=== PATIENT | male | born 1960 | race African-American/Black ===

== ENCOUNTER → 2020-05-08 13:56 | Outpatient (BNVA) | payer BC, SELFPAY | PROVIDERS: Visit Provider Urology | DX: Z76.89 Persons encountering health services in other specified circumstances (principal) ==

== ENCOUNTER 2021-10-22 15:09 | Outpatient (AMB) | payer BC, SELFPAY ==
--- NOTE | 2021-10-22 15:16 | A.OFFVIS_ITS ---
Intake Intake Visit Reasons: Y PVR Intake Note: Patient is present for pvr follow up Boil Off Worker Required: No Accompanied by: Self / Same As Patient Allergies No Known Allergies Allergy (Verified 10/21/22 15:36) HPI HPI Comments History of Present Illness Details Bishnu is a very pleasant [place] male. He is seen for the following urologic issues - lower urinary tract symptoms Lower Urinary Tract Symptoms: Family history of large prostate and prostate procedures He has a large prostate on exam previously At this point tells me his urination is stable. Waking once per night. Feels he has a good stream and emptying his bladder completely Here for follow-up assessment At this point is stable with symptoms but would like to be followed. Has large prostate on exam Discussed use of finasteride for enlarged prostate. Discussed natural history of [place] men who have large prostates. 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 Current visit is for initial symptom evaluation of, lower urinary tract symptoms, predominate obstructive symptoms. Current treatment includes observation. Prostate Symptom Score Mild (0-8), Bother 2. Symptoms include incomplete emptying, weak stream, and are stable. [facility] Medical History Benign prostatic hyperplasia with lower urinary tract symptoms Hyperlipidemia Mild acid reflux Poor urinary stream Surgical History History of surgery Review of Systems Const Denies chills and Denies fever(s) Card Reports no additional complaints and Denies syncope Resp Denies cough GI Denies abdominal pain and Denies heartburn Reports as per HPI and Denies change in libido Neuro Denies syncope Psych Denies change in libido Endo Denies change in libido Physical Exam Const General: cooperative, healthy appearing, comfortable and no acute distress Orientation/consciousness: patient oriented x3 HEENT Face and sinus: Yes normal facial exam Mouth: moist mucous membranes Neck Neck: Yes normal visual inspection, Yes full ROM and Yes trachea midline Chest Chest palpation & inspection: normal inspection of the chest Resp Effort & Inspection: normal respiratory effort, able to speak in complete sentences and no respiratory distress GI Inspection: Yes normal to inspection Back/Spine/Pelvis Cervical Spine: normal cervical lordosis Thoracic/Lumbar Spine: thoracic and lumbar spine normal to inspection Skin General skin exam: no rashes or lesions noted Neuro General: patient oriented x3, gait normal, tone normal and moves all extremities Extrem General: Yes normal to inspection and Yes capillary refill normal Office Procedures Post Void Residual Post Residual Void Post Void Residual (PVR): 0 [id number] Void Residual by ultrasound Results AMB Urinalysis, Automated UA Leukoctes 0 Antonio/uL Last Edit by Jocelyn Tran [facility] on 10/22/21 15:36 UA Nitrite Negative Last Edit by Jocelyn Tran [facility] on 10/22/21 15:36 UA Urobilinogen 0.2 mg/dL Last Edit by Jocelyn Tran A on 10/22/21 15:3 6 UA Protein 100 mg/dL Last Edit by Jocelyn Tran [facility] on 10/22/21 15:36 UA pH 5.5 Last Edit by Jocelyn Tran [facility] on 10/22/21 15:36 UA Blood 0 Noah/uL Last Edit by Jocelyn Tran [facility] on 10/22/21 15:36 UA Specific [place] 1.030 Last Edit by Jocelyn Tran [facility] on 10/22/21 15: 36 UA Ketone Negative Last Edit by Jocelyn Tran [facility] on 10/22/21 15:36 UA Bilirubin 1 mg/dL Last Edit by Jocelyn Tran [facility] on 10/22/21 15:36 UA Glucose 250 mg/dL Last Edit by Jocelyn Tran [facility] on 10/22/21 15:36 Results Reviewed Results Reviewed: Laboratory Last Values Urine pH (Auto) 5.5 10/22/21 15:18 Specific [place] (Auto) 1.030 10/22/21 15:18 Urine Protein (Auto) 100 mg/dL 10/22/21 15:18 Glucose (UA)(Auto) 250 mg/dL 10/22/21 15:18 Urine Ketones (Auto) Negative 10/22/21 15:18 Urine Blood (Auto) 0 Noah/uL 10/22/21 15:18 Urine Nitrite (Auto) Negative 10/22/21 15:18 Urine Bilirubin (Auto) 1 mg/dL 10/22/21 15:18 Urine Urobilinogen (Auto) 0.2 mg/dL 10/22/21 15:18 Leukocyte Esterase (Auto) 0 Antonio/uL 10/22/21 15:18 Assessment & Plan Assessment & Plan (1) BPH w urinary obs/LUTS: Code(s): N40.1 - Benign prostatic hyperplasia with lower urinary tract symptoms; N13.8 - Other obstructive and reflux uropathy Plan Continue yearly follow-up Orders: Orders AMB Urinalysis Automated 10/22/21 Z13.9 - Encounter for screening, unspecified AMB Post Void Residual by ultrasound 10/22/21 N40.1 - Benign prostatic hyperplasia with lower urinary tract symptoms, N13.8 - Other obstructive and reflux uropathy Patient Instructions: Imaging studies, laboratory and physical exam results were discussed and reviewed in detail. No major barriers to patient understanding were identified. An opportunity to ask questions regarding the treatment plan was provided. All questions were answered. The patient expressed understanding and agreement with the above treatment plan. The patient is aware they should contact our office by phone for worsening of their current condition or the appearance of new urologic symptoms. Compliance is encouraged with any medications and followup testing that is ordered. It is a privilege to participate in the urologic care of your patient. If you have any questions or concerns regarding treatment for the above conditions, or other urologic issues, please do not hesitate to contact me. The office telephone contact is [phone]. This note is constructed using voice recognition software. While every effort has been made to ensure accuracy concrete batching plant operator errors may have been included. Yours sincerely, Dr Jamari Diaz MD, [facility] - Urology Providers of Expert, Compassionate Care for the Genitourinary System Coding Level of Care Code Est Pt Level 3 (62263) Diagnoses BPH w urinary obs/LUTS N40.1; N13.8 CPT Codes Post Residual Void - PVR CPT Code: 00855-[id number] Void Residual by ultrasound ([id number])
== END 2021-10-22 16:34 | disposition home or self-care (01) ==
LOC: HO.HUSH 15:09
PROVIDERS: Visit Provider Urology
DX: N40.1 Benign prostatic hyperplasia with lower urinary tract symptoms (principal); N13.8 Other obstructive and reflux uropathy
CPT/HCPCS: 99213

== ENCOUNTER → 2021-10-22 15:09 | Outpatient (BNVA) | payer BC, SELFPAY | PROVIDERS: Visit Provider Urology | DX: N40.1 Benign prostatic hyperplasia with lower urinary tract symptoms (principal); N13.8 Other obstructive and reflux uropathy | CPT/HCPCS: 51798 ==

== ENCOUNTER → 2022-10-21 15:24 | Outpatient (BNVA) | payer BC, SELFPAY | PROVIDERS: PCP Internal Medicine; Visit Provider Urology | DX: N40.1 Benign prostatic hyperplasia with lower urinary tract symptoms (principal); N13.8 Other obstructive and reflux uropathy | CPT/HCPCS: 51798 ==

== ENCOUNTER 2023-11-15 15:53 | Outpatient (AMB) | payer BC, SELFPAY ==
--- NOTE | 2023-11-15 16:06 | A.OFFVIS_ITS ---
Intake Visit Reasons: 1 yr follow up Intake Note: Patient is present for 1 YEAR FOLLOW PVR Urology Med: Antibiotic Allergy: none Blood Thinner: none PVR: 19 ml Forest Supervisor Required: No Accompanied by: Self / Same As Patient Allergies No Known Allergies Allergy (Verified 11/15/23 16:07) HPI Comments Details: Bishnu is a very pleasant [place] male. 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 Current treatment includes observation. Prostate Symptom Score Mild (0-8), Bother 2. Symptoms include incomplete emptying, weak stream, and are stable. [facility] Medical History Benign prostatic hyperplasia with lower urinary tract symptoms Hyperlipidemia Mild acid reflux Poor urinary stream Surgical History History of surgery Review of Systems Const Denies chills and Denies fever(s) Card Reports no additional complaints and Denies syncope Resp Denies cough GI Denies abdominal pain and Denies heartburn Reports as per HPI and Denies change in libido Neuro Denies syncope Psych Denies change in libido Endo Denies change in libido Physical Exam Const General: cooperative, healthy appearing, comfortable and no acute distress Orientation/consciousness: patient oriented x3 HEENT Face and sinus: Yes normal facial exam Mouth: moist mucous membranes Neck Neck: Yes normal visual inspection, Yes full ROM and Yes trachea midline Chest Chest palpation & inspection: normal inspection of the chest Resp Effort & Inspection: normal respiratory effort, able to speak in complete sentences and no respiratory distress GI Inspection: Yes normal to inspection Back/Spine/Pelvis Cervical Spine: normal cervical lordosis Thoracic/Lumbar Spine: thoracic and lumbar spine normal to inspection Skin General skin exam: no rashes or lesions noted Neuro General: patient oriented x3, gait normal, tone normal and moves all extremities Extrem General: Yes normal to inspection and Yes capillary refill normal Results AMB Urinalysis, Automated UA Leukoctes 0 Antonio/uL Last Edit by FERNANDO Gray on 11/15/23 16:09 UA Nitrite Negative Last Edit by FERNANDO Gray on 11/15/23 16:09 UA Urobilinogen 0.2 mg/dL Last Edit by FERNANDO Gray on 11/15/23 16:0 9 UA Protein 30 mg/dL Last Edit by FERNANDO Gray on 11/15/23 16:09 1+ Komal Lala 11/15/23 16:09 UA pH 7.0 Last Edit by FERNANDO Gray on 11/15/23 16:09 UA Blood 0 Noah/uL Last Edit by FERNANDO Gray on 11/15/23 16:09 UA Specific [place] 1.010 Last Edit by FERNANDO Gray on 11/15/23 16: 09 UA Ketone Negative Last Edit by FERNANDO Gray on 11/15/23 16:09 UA Bilirubin 1 mg/dL Last Edit by FERNANDO Gray on 11/15/23 16:09 UA Glucose 0 mg/dL Last Edit by FERNANDO Gray on 11/15/23 16:09 Results Reviewed Results Reviewed: Laboratory Last Values Urine pH (Auto) 7.0 11/15/23 16:07 Specific [place] (Auto) 1.010 11/15/23 16:07 Urine Protein (Auto) 30 mg/dL 11/15/23 16:07 Glucose (UA)(Auto) 0 mg/dL 11/15/23 16:07 Urine Ketones (Auto) Negative 11/15/23 16:07 Urine Blood (Auto) 0 Noah/uL 11/15/23 16:07 Urine Nitrite (Auto) Negative 11/15/23 16:07 Urine Bilirubin (Auto) 1 mg/dL 11/15/23 16:07 Urine Urobilinogen (Auto) 0.2 mg/dL 11/15/23 16:07 Leukocyte Esterase (Auto) 0 Antonio/uL 11/15/23 16:07 Assessment & Plan Assessment & Plan (1) BPH w urinary obs/LUTS: Code(s): N40.1 - Benign prostatic hyperplasia with lower urinary tract symptoms; N13.8 - Other obstructive and reflux uropathy Category: Medical Plan Twelve month follow-up Orders: Orders AMB Urinalysis Automated 11/15/23 Z13.9 - Encounter for screening, unspecified Prostate Specific Antigen 364 Days N13.8 - Other obstructive and reflux uropathy, N40.1 - Benign prostatic hyperplasia with lower urinary tract symptoms Patient Instructions: Imaging studies, laboratory and physical exam results were discussed and reviewed in detail. No major barriers to patient understanding were identified. An opportunity to ask questions regarding the treatment plan was provided. All questions were answered. The patient expressed understanding and agreement with the above treatment plan. The patient is aware they should contact our office by phone for worsening of their current condition or the appearance of new urologic symptoms. Compliance is encouraged with any medications and followup testing that is ordered. It is a privilege to participate in the urologic care of your patient. If you have any questions or concerns regarding treatment for the above conditions, or other urologic issues, please do not hesitate to contact me. The office telephone contact is [phone]. This note is constructed using voice recognition software. While every effort has been made to ensure accuracy loss claim clerk errors may have been included. Yours sincerely, Dr Jamari Diaz MD, [facility] - Urology Providers of Expert, Compassionate Care for the Genitourinary System Coding Level of Care Code Est Pt Level 4 (47992) Diagnoses BPH w urinary obs/LUTS N40.1; N13.8
== END 2023-11-16 08:30 | disposition home or self-care (01) ==
PROVIDERS: PCP Internal Medicine; Visit Provider Urology
DX: N40.1 Benign prostatic hyperplasia with lower urinary tract symptoms (principal); N13.8 Other obstructive and reflux uropathy
CPT/HCPCS: 99213

== ENCOUNTER → 2023-11-15 15:59 | Outpatient (BNVA) | payer BC, SELFPAY | PROVIDERS: PCP Internal Medicine; Visit Provider Urology | DX: N40.1 Benign prostatic hyperplasia with lower urinary tract symptoms (principal); N13.8 Other obstructive and reflux uropathy | CPT/HCPCS: 81003 ==

== ENCOUNTER 2024-11-13 15:17 | Outpatient (AMB) | payer BC, SELFPAY ==
--- OUTSIDE RECORDS SUMMARY | 2024-11-13 15:20 | XMS_ITS | Clinical Summary ---
Author Organization [facility] Address [address] [place] [phone] Phone Care Team Providers Care Template Clerk Name Role Phone Virgil Roca MD Primary Care Provider [phone] Social History Tobacco Use Types Packs/Day Years Used Date Smoking Tobacco: Never Assessed Education Answer Date Recorded Are you interested in more education? Not on petey e 11/07/2022 Are you concerned about learning? Not on file 11/07/2022 No 11/07/2022 No 11/07/2022 Digital Access Answer Date Recorded No 11/22/2022 No 11/22/2022 Reliable internet access at home? Not on file 11/22/2022 Device with a working camera? Not on file Sex and Gender Information Value Date Recorded Sex Assigned at Male 11/07/2022 9:58 AM EDT Legal Sex Male 9:53 AM EDT Gender Identity Male 11/07/2022 9:58 AM EDT Sexual Orientation Straight 11/07/2022 9: 58 AM EDT Plan of Treatment Health Maintenance Due Date Last Done Comments Adult Td,Tdap Booster 1958 LIPID PANEL 1958 DEPRESSION SCREENING 1970 SMOKING Hx and SMOKELESS TOB ACCO SCREENING 09/25/1971 HEPATITIS C SCREENING 1976 COLOGUARD 09/25/2003 COLONOSCOPY 09/25/2003 COLORECTAL CANCER SCREENING 09/25/2003 FIT TEST 09/25/2003 FOBT 09/25/2003 SIGMOIDOSCOPY 09/25/2003 VIRTUAL COLONOSCOPY 09/25/2003 PNEUMOCOCCAL VACCINES (50+ y ears) (1 of 1 - PCV) 2008 ZOSTER VACCINES (1 of 2) 2008 COVID-19 VACCINE ( - 2023-2 5 season) 2024 RSV VACCINE (1 - 1-dose 75+ series) 2033 HEPATITIS A VACCINES Aged Out No long er eligible based on patient's age to complete this topic HIB VACCINES Aged Out No longer eligi ble based on patient's age to complete this topic MENINGOCOCCAL VACCINES (ACWY) Aged Out No longer eligible based on patient's age to complete this topic MENINGOCOCCAL VACCINES (B) Aged Out N o longer eligible based on patient's age to complete this topic Medical Devices Not on file Insurance [facility] PPO EPO [facility] PPO EPO [employer] [employer] [employer] [employer] PPO EPO Care Teams Template Clerk Relationship Specialty Start Date End Date Virgil Roca MD [address] [place] [id number] PCP - General Internal Medicine 11/07/22 Additional Source Comments The information contained in this document represents components of the legal health record. It is not the complete legal health record.[facility]
--- OUTSIDE RECORDS SUMMARY | 2024-11-13 15:20 | XMS_ITS | Clinical Summary ---
Author Organization [facility] [employer] [email or web address] Address [address] [place] [address] Care Team Providers Care Rn Chronic Name Role Phone Unavailable Primary Care Provider Unavailabl e Social History Tobacco Use Types Packs/Day Years Used Date Smoking Tobacco: Never Assessed Sex and Gender Information Value Date Recorded Sex Assigned at Not on file Legal Sex Male 1:00 PM EDT Gender Identity Not on file Sexual Orientation Not on file Plan of Treatment Health Maintenance Due Date Last Done Comments Colorectal Cancer: COLONOSCO PY Screening every 10 yrs (or Modifier) 1958 Depression: Screening Annual ly using PHQ-2/9 in Adults 18 yrs or above (or HM Modifier)([facility]) 1976 Hepatitis C Virus Infection in Adolescents and Adults: Screening (or Modifier) ([facility]) 1976 SDOH Screening Reminder: Rosita pena for all adults ([facility]) 1976 Tobacco Smoking Cessation: i n Adults excluding Women: Behavioral and Pharmacotherapy Interventions ([facility]) 1976 DTaP/Tdap/Td Vaccines ([facility]) (1 - Tdap) 1977 zzRETIRED Lipid Screening: E very 5 yrs for Men aged 35+ (or HM Modifier) ([facility]) 1994 Colorectal Cancer Screening 45 -75 Yrs (or HM Modifier ) 09/25/2003 Colorectal Cancer: FLEXIBLE SIGMOIDOSCOPY Screening every 5 yrs 09/25/2003 Colorectal Cancer: Fecal Imm unochemical Test (FIT) Annually [facility] 09/25/2003 Colorectal Cancer: High-sens itivity gFOBT Screening Annually [facility] 09/25/2003 Colorectal Cancer: Stool Col oguard Screening every 3 yrs 09/25/2003 Colorectal Cancer:CT Colonography Screening every 5 yr s 09/25/2003 Pneumococcal Vaccination Scr eening: Patients 50+ yrs of age ([facility]) (1 of 1 - PCV) 2008 Zoster/Shingles Vaccine Seri es Screening: Adults aged 18+ yrs (or HM Modifiers)([facility]) (1 of 2) 2008 COVID-19 Vaccine Screening: Initial Series and Booster Status ([facility]) ( - 2023- season) 2024 Flu Vaccination: Ages 65+: Y early High Dose Recommended (or Modifier)([facility]) 01/24/2025 RSV Vaccines (1 - 1-dose 75+ series) 2033 Medical Devices Not on file
--- OUTSIDE RECORDS SUMMARY | 2024-11-13 15:20 | XMS_ITS | Clinical Summary ---
Author Organization [address] [facility] Building Address [address] [place] [phone] Phone Care Team Providers Care Machine Wedger Name Role Phone Virgil Roca MD Primary Care Provider [phone] Allergies No known active allergies Medications cholecalciferol (VITAMIN D-3) 50 mcg (2,000 unit) capsule Take 2,000 Units by mouth 2 times daily. Active SAW PALMETTO ORAL daily. Ac tive MULTIVITAMIN ORAL Take by mouth daily. Active indapamide (LOZOL) 1.25 mg tabletIndications :Primary hypertension Take 1 tablet (1.25 mg total) by mouth 1 (one) time each day in the morning. 30 each 11 4 05/24/20 25 Active dilTIAZem CD (CARDIZEM CD) 120 mg 24 hr capsule TAKE 1 CAPSULE DAILY 90 capsule 1 5 Active rosuvastatin (CRESTOR) 10 mg tablet Take 1 tablet (10 mg total) by mouth 1 (one) time each day. 90 tablet 1 5 Active Active Problems Problem Noted Date Diagnosed Date Thyroid nodule 09/11/2023 Thrombocytopenia (CMS/HCC V24) 07/23/2021 Thyroid with heterogeneous e chotexture determined by ultrasound 12/15/2020 Chronic low back pain without sciatica 8 Benign non-nodular prostatic hyperplasia without lower urinary tract symptoms 01/18/2017 Hyperlipidemia 01/18/2017 Back pain 07/14/2008 Hordeolum externum 08/15/2005 HTN (hypertension) 08/15/2005 Encounters Date Type Department Care Team Description 10/18/2024 8:00 AM EDT Consult Endocrinology - [id number] [place] [phone] Pam Mckoy PA Thyroid nodule (Primary Dx) 09/11/2024 10:00 AM EDT Office Visit Orthopedic Surgery - [place] [address] [facility] [address] [place] [phone] Saul Rubalcava, DPM Arthritis of right ankle (Primary Dx); Arthritis of left ankle 08/26/2024 Telephone Internal Medicine - [address] [phone] Natalie Brush MA Results (Please transfer to [phone] thanks. SHRUTHI Wilfrido) 08/23/2024 9:58 AM EST - 08/23/2024 11:59 PM EST Hospital Encounter Ultrasound - [facility] [address] [place] [address] Thyroid nodule Discharge Disposition: Home or Self Care 08/23/2024 Telephone Internal Medicine - [address] [phone] Roro Henry MA Results from Last 3 Months Immunizations Name Administration Dates Next Due Influenza Quadravalent, MDCK , 0.5ml, preservative free (Flucelvax) 6mo and older 03/02/2023 Influenza trivalent, 0.5mL, preservative free (Fluarix; FluLaval; Fluzone) ages 6mo and older (Afluria) 3 years and older 03/13/2018,03/05/2017,03/20/2015,2013,03/30/2013,04/01/2011,04/15/2010,1 ,04/10/2008,05/16/2007, 006,04/28/2005 Influenza, Unspecified 03/14/2022,04/26/2021,06/2015 Moderna SARS-CoV-2 COVID-19, mRNA, LNP-S, preservative free 05/02/2021,10/25/2020,09/25/2020 Pneumococcal conjugate 20 va lent (Prevnar 20, PCV 20) 2mo and older 05/24/2024 Td Tetanus diptheria (Tdvax) 7yo and older 02/19/2018,07/04/1997 Tdap Tetanus diptheria acell ular pertussis (Boostrix; Adacel) 7yo and older 08/31/2007 Zoster recombinant (Shingrix ) 19yo and older 04/14/2019,02/11/2019 Surgical History Surgery Date Site/Laterality Comments HERNIA REPAIR 1996 PROCEDURE: HISTORICAL HERNIA REPAIR/ING; COMMENT: LEFT COLONOSCOPY 02/23/2009 PROCEDURE: HISTORICAL COLONOSCOPY; COMMENT: Normal COLONOSCOPY 01/15/2020 PROCEDURE: HISTORICAL COLONOSCOPY; COMMENT: no polyps Medical History Medical History Date Comments Essential hypertension, benign D X:Essential hypertension, benign Essential hypertension, benign 08/15/2005 D X:Essential hypertension, benign Hordeolum externum 08/15/2005 DX:Hordeolum externum Special screening for malign ant neoplasms, colon 02/23/2009 DX:Special screening for mal ignant neoplasms, colon Hyperlipidemia 01/18/2017 DX:Hyperlipidemi a Benign non-nodular prostatic hyperplasia without lower urinary tract symptoms 01/18/2017 DX:Benign non-nodular prosta tic hyperplasia without lower urinary tract symptoms Thyroid with heterogeneous e chotexture determined by ultrasound 12/15/2020 DX:Thyroid with heterogeneou s echotexture determined by ultrasound Thyroid nodule 09/11/2023 DX:Thyroid nodul e Family History Medical History Relation Name Comments Dementia Father Hypertension Father age 89 in [facility], bedridden from back issues Other: bph Father Other: chronic back pain Father Diabetes Maternal Grandfather possibl e stroke; at age 67 Other: Other Maternal Grandmother - age 90, ? cause-no cancer Other: bipolar disease Mother at age 57-toxic med levels Stroke Other 1 pat gr uncle Other: BRCA positive Other 2 mat 1st cousin; ? gene Other: Other Paternal Grandfather in his 90s Stroke Paternal Grandmother in her early 80s Relation Name Status Comments Aunt 3 Mat Aunts lina ast [place] (pt is BRCA negative 2014) Daughter 1 Alive born 1990, Otilia hardin, 12/25/15 Daughter 2 Alive born 1996, Lurdes hardin at college Father Alive HTN, BPH. Maternal Grandfather Maternal Grandmother Mother (Age 57 ) Manic Dep ressive, accid.OD amitriptyline(FH colon ca & breast CA) Other 1 Other 2 Paternal Grandfather Paternal Grandmother Sister 1 Alive full sister wit h HTN Sister 2 Alive Two 1/2 sisters , healthy Son Alive born 1987, [facility] [place], , [place] Uncle Alive age 50's stomac h [place] (maternal side) Social History Tobacco Use Types Packs/Day Years Used Date Smoking Tobacco: Never Smokeless Tobacco: Never Tobacco Cessation:Counseling Given: Not Answered Alcohol Use Standard Drinks/Week Comments No 0 (1 standard drink = 0.6 oz pur e alcohol) Housing Instability Answer Date Recorde d Are you worried that in the next 2 months you may not have stable housing? No 05/23/2024 Food Access & Nutrition Answer Date Rec orded Do you have access to a vari ety of food including fruits and vegetables? Yes 05/23/2024 Access to Healthcare Answer Date Record ed Within the last 3 months, ho w many times did you visit the emergency department for your medical care? 0 05/23/2024 Health Literacy Answer Date Recorded How often do you need to hav e someone help you when you read instructions, pamphlets, or other written material from your doctor or pharmacy? Never 05/23/2024 Caregiver: How often do you need to have someone help you when you read instructions, pamphlets, or other written material from your doctor or pharmacy? Not on file 05/23/2024 Financial Risk Answer Date Recorded How hard is it for you to pa y for the very basics like food, housing, medical care, and air conditioning / heating? Not very hard 05/23/2024 Transportation Answer Date Recorded Has the lack of transportati on kept you from meetings, work, or from getting things needed for daily living? No Has the lack of transportati on kept you from medical appointments or from getting medications? No 05/23/2024 Social Isolation Answer Date Recorded How often do you feel lonely or isolated from th ose around you? Never 05/23/2024 Food Risk Answer Date Recorded Within the past 12 months we worried whether our food would run out before we got money to buy more. Never true 05/23/2024 Within the past 12 months th e food we bought just didn't last and we didn't have money to get more. Never true 05/23/2024 Dependent Care Answer Date Recorded Do you need help finding or paying for care for your loved ones. For example, child life assistant or elderly care for an older adult? No 05/23/2024 Education Answer Date Recorded Do you think completing more education or training, like finishing a GED, going to college, or learning a trade, would be helpful for you? No 05/23/2024 Employment and Income Answer Date Recor ded During the last four weeks, have you been actively looking for work? No 05/23/2024 Living Situation Answer Date Recorded What is your living situation? 1 07/23/2023 Sex and Gender Information Value Date Recorded Sex Assigned at Not on file Legal Sex Male 7:22 PM EST Gender Identity Not on file Sexual Orientation Not on file Travel History Travel Start Travel End [place] 09/17/2024 10/18/2024 [place] 09/17/2024 10/18/2024 Obstetrics History Last Filed Vital Signs Vital Sign Reading Time Taken Comments Blood Pressure 100/62 10/18/2024 8:06 AM EDT C Pulse 58 10/18/2024 8:06 AM EDT Temperature 35.8 ??C (96.4 ??F) 10/18/2024 8:06 AM ED T Respiratory Rate - - Oxygen Saturation 97% 10/18/2024 8:06 AM EDT Inhaled Oxygen Concentration - - Weight 93.5 kg (206 lb 3.2 oz) 10/18/2024 8:06 A M EDT Height 181.6 cm (5' 11.5 ) 10/18/2024 8:06 AM ED T Body Mass Index 28.36 10/18/2024 8:06 AM EDT Plan of Treatment Health Maintenance Due Date Last Done Comments Falls Risk Assessment 09/25/2023 COVID-19 Vaccine ( season) 2024 03/02/2024, 03/25/2023, 03/10/2022, Additional history exists Influenza Vaccine (Season Ended) 2025 03/02/2023, 03/14/2022, 03/10/2022, Additional history exists Depression Screening 05/23/2025 05/23/2024 Social Influencers of Health Screening 05/23/2025 05/23/2024 Hypertension/CHF/CAD Annual BMP Blood Test 05/24/2025 05/24/2024, 12/15/2023, 12/15/2023 DTaP,Tdap,and Td Vaccines (4 - Td or Tdap) 02/20/2028 02/19/2018, 08/31/2007, 07/04/1997 Cholesterol Screening (Lipid Panel) 05/24/2029 05/24/2024, 08/04/2023 Colorectal Cancer Screening: Colonoscopy 01/14/2030 01/15/2020 RSV Immunization Adult Patients (1 - 1-dose 75+ series) 2033 Hepatitis C Screening Completed 04/01/2013 Zoster Vaccines Completed 04/19/2020, 03/27, 02/11/2019 Pneumococcal Vaccine: 50+ Years Completed 05/24/2024 HIB Vaccines Aged Out No longer eligi ble based on patient's age to complete this topic HPV Vaccines Aged Out No longer eligi ble based on patient's age to complete this topic Hepatitis A Vaccines Aged Out No long er eligible based on patient's age to complete this topic Hepatitis B Vaccines Aged Out No long er eligible based on patient's age to complete this topic IPV Vaccines Aged Out No longer eligi ble based on patient's age to complete this topic MMR Vaccines Aged Out No longer eligi ble based on patient's age to complete this topic Meningococcal ACWY Vaccine Aged Out N o longer eligible based on patient's age to complete this topic Meningococcal B Vaccine Aged Out No l onger eligible based on patient's age to complete this topic RSV Immunization Patients Under 20 months Aged Out No longer eligible based on patient's age to complete this topic Varicella Vaccines Aged Out No longer eligible based on patient's age to complete this topic Procedures Procedure Name Priority Date/Time Associated Diagnosis Comments US HEAD NECK SOFT TISSUE Routine 08/23/2024 10:38 AM EST Thyroid nodule BASIC METABOLIC PANEL Routine 05/24/2024 9:42 AM EST Adult general medical exam Primary hypertension LIPID PANEL WITH REFLEX TO DIRECT LDL Routine 05/24/2024 9:42 AM EST Routine general medical examination at a health care facility COLONOSCOPY Routine 01/15/2020 HEPATITIS C SCREENING Routine 04/01/2013 from Last 3 Months or Most Recently Relevant to Health Maintenance Results * US Head Neck Soft Tissue (08/23/2024 10:38 AM EST) Anatomical Region Laterality Modality Head and Neck Ultrasound 08/23/2024 12:0 6 PM EST Narrative 08/23/2024 12:07 PM EST Thyroid ultrasound. History follow-up on thyroid nodule. Comparison with previous study from 09/11/2023. Right thyroid lobe was visualized was normal size and echogenicity and normal flow on color Doppler examination. It measures 4.8 x 1.8 x 2.2 cm. Left thyroid lobe was visualized measuring 5.3 x 1.9 x 1.7 cm. There is normal flow on color Doppler examination. There is tiny nodule in the lower pole measuring 0.5 x 0.4 x 0.4 cm, previously 0.4 x 0.3 x 0.3 cm. CONCLUSIONS: Tiny nodule in the left thyroid lobe as detailed. It could be followed ultrasonographically. -------- FINAL REPORT -------- Dictated By: Gabby Negron Dictated Date: 08/23/2024 12:06 ET Assigned Physician: Gabby Negron Reviewed and Electronically Signed By: Gabby Negron Signed Date: 08/23/2024 12:07 ET Workstation ID: [id number] Transcribed By: Self Edit Transcribed Date: 08/23/2024 12:06 ET Procedure Note Gabby Negron MD - 08/23/2024 Thyroid ultrasound. History follow-up on thyroid nodule. Comparison with previous study from 09/11/2023. Right thyroid lobe was visualized was normal size and echogenicity andnormal flow on color Doppler examination. It measures 4.8 x 1.8 x 2.2cm. Left thyroid lobe was visualized measuring 5.3 x 1.9 x 1.7 cm. There isnormal flow on color Doppler examination. There is tiny nodule in thelower pole measuring 0.5 x 0.4 x 0.4 cm, previously 0.4 x 0.3 x 0.3 cm. CONCLUSIONS: Tiny nodule in the left thyroid lobe as detailed. It could befollowed ultrasonographically. -------- FINAL REPORT -------- Dictated By: Gabby Negron Dictated Date: 08/23/2024 12:06 ET Assigned Physician: Gabby Negron Reviewed and Electronically Signed By: Gabby Negron Signed Date: 08/23/2024 12:07 ET Workstation ID: [id number] Transcribed By: Self Edit Transcribed Date: 08/23/2024 12:06 ET us Merrill Raphael NP IMG US PROCEDURES Final Result * Lipid panel with reflex to direct LDL (05/24/2024 9:42 AM EST) Cholesterol 144 0 - 200 mg/dL LAB CHEMISTRY METHOD 05/24/2024 12:47 PM [facility] Triglycerides 67 0 - 150 mg/dL LAB CHEMISTRY METHOD 05/24/2024 12:47 PM [facility] HDL 65 >=40 mg/dL LAB CHEMISTRY METHOD 05/24/2024 12:47 PM [facility] LDL Calculated 66 0 - 100 mg/dL LAB CHEMISTRY METHOD 05/24/2024 12:47 PM [facility] VLDL Cholesterol Georges 13.4 mg/dL LAB CHEMISTRY METHOD 05/24/2024 12:47 PM [facility] Non HDL Chol. (LDL+VLDL) 79 <145 mg/dL LAB CHEMISTRY METHOD 05/24/2024 12:47 PM [facility] Chol/HDL Ratio 2.2 0.0 - 4.4 LAB CHEMISTRY METHOD 05/24/2024 12:47 PM [facility] Blood Venous blood specimen / Unknown Venipuncture / Unknown 05/24/2024 9:42 AM EST 05/24/2024 9:42 AM EST Merrill Raphael FIELD MARKETING LEAD LAB BLOOD ORDERABLES Final Res ult [facility] [address] [place] [address], * (ABNORMAL) Basic metabolic panel (05/24/2024 9:42 AM EST) Sodium 143 133 - 145 mmol/L LAB CHEMISTRY METHOD 05/24/2024 12:47 PM [facility] Potassium 3.6 3.5 - 5.5 mmol/L LAB CHEMISTRY METHOD 05/24/2024 12:47 PM [facility] Chloride 106 96 - 110 mmol/L LAB CHEMISTRY METHOD 05/24/2024 12:47 PM [facility] CO2 33(H) 21 - 32 mmol/L LAB CHEMISTRY METHOD 05/24/2024 12:47 PM [facility] Anion Gap 4 3 - 11 LAB CHEMISTRY METHOD 05/24/2024 12:47 PM [facility] Glucose 93 70 - 100 mg/dL LAB CHEMISTRY METHOD 05/24/2024 12:47 PM [facility] BUN 16 5 - 25 mg/dL LAB CHEMISTRY METHOD 05/24/2024 12:47 PM [facility] Creatinine 1.12 0.70 - 1.30 mg/dL LAB CHEMISTRY METHOD 05/24/2024 12:47 PM [facility] eGFR 73 >=60 mL/min/1. 73m2 LAB CHEMISTRY METHOD 05/24/2024 12:47 PM [facility] Comment:Calculation based on the??Chronic Kidney Disease Epidemiology Collaboration (CKD-EPI) equation refit??without adjustment for race. BUN/Creatinine Ratio 14.3 LAB CHEMISTRY METHOD 05/24/2024 12:47 PM EST [facility] Calcium 9.4 8.5 - 10.5 mg/dL LAB CHEMISTRY METHOD 05/24/2024 12:47 PM EST [facility] Blood Venous blood specimen / Unknown Venipuncture / Unknown 05/24/2024 9:42 AM EST 05/24/2024 9:42 AM EST Merrill Raphael FIELD MARKETING LEAD LAB BLOOD ORDERABLES Final Res ult [facility] [address] [place] [address], * Colonoscopy (01/15/2020) Colonoscopy No interpreta tion,abstr acted Anatomical Region Laterality Modality Other Historical Provider HEALTH MAINTENANCE Final Result * Hepatitis C Screening (04/01/2013) Pathologist [facility] Hepatitis C Screening Abstracted Historical Provider HEALTH MAINTENANCE Final Result from Last 3 Months or Most Recently Relevant to Health Maintenance Insurance [facility] Care Teams Machine Wedger Relationship Specialty Start Date End Date Virgil Roca MD [address] [place] [id number] PCP - General Internal Medicine 04/21/20
--- NOTE | 2024-11-13 15:39 | A.OFFVIS_ITS ---
Intake Visit Reasons: 1y/PSA/PVR Intake Note: Patient is present for 1Y/PVR/PSA Urology Medication:NONE Antibiotic Allergy:NONE Blood Thinner:NONE Boilermaker Assembly And Erection Required: No Allergies No Known Allergies Allergy (Verified 11/13/24 15:42) HPI Comments Details: Bishnu is a very pleasant [place] male. 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 Current treatment includes observation. Prostate Symptom Score Mild (0-8), Bother 2. Symptoms include incomplete emptying, weak stream, and are stable. [facility] Medical History Benign prostatic hyperplasia with lower urinary tract symptoms Hyperlipidemia Mild acid reflux Poor urinary stream Surgical History History of surgery Review of Systems Const Denies chills and Denies fever(s) Card Reports no additional complaints and Denies syncope Resp Denies cough GI Denies abdominal pain and Denies heartburn Reports as per HPI and Denies change in libido Neuro Denies syncope Psych Denies change in libido Endo Denies change in libido Physical Exam Const General: cooperative, healthy appearing, comfortable and no acute distress Orientation/consciousness: patient oriented x3 HEENT Face and sinus: Yes normal facial exam Mouth: moist mucous membranes Neck Neck: Yes normal visual inspection, Yes full ROM and Yes trachea midline Chest Chest palpation & inspection: normal inspection of the chest Resp Effort & Inspection: normal respiratory effort, able to speak in complete sentences and no respiratory distress GI Inspection: Yes normal to inspection Back/Spine/Pelvis Cervical Spine: normal cervical lordosis Thoracic/Lumbar Spine: thoracic and lumbar spine normal to inspection Skin General skin exam: no rashes or lesions noted Neuro General: patient oriented x3, gait normal, tone normal and moves all extremities Extrem General: Yes normal to inspection and Yes capillary refill normal Assessment & Plan Assessment & Plan (1) BPH w urinary obs/LUTS: Code(s): N40.1 - Benign prostatic hyperplasia with lower urinary tract symptoms; N13.8 - Other obstructive and reflux uropathy Category: Medical Plan Three-month follow-up tele Medications: New tadalafil [id number] [facility] [place][NOTE 2] [id number] Member [id number] 5 mg PO DAILY 90 days 90 tabs 0RF bladder stability N13.8 - Other obstructive and reflux uropathy, N40.1 - Benign prostatic hyperplasia with lower urinary tract symptoms Patient Instructions: This note is constructed using voice recognition software. While every effort has been made to ensure accuracy business investor errors may have been included. Imaging studies, laboratory and physical exam results were discussed and reviewed in detail. No major barriers to patient understanding were identified. An opportunity to ask questions regarding the treatment plan was provided. All questions were answered. The patient expressed understanding and agreement with the above treatment plan. The patient is aware they should contact our office by phone for worsening of their current condition or the appearance of new urologic symptoms. Compliance is encouraged with any medications and followup testing that is ordered. It is a privilege to participate in the urologic care of your patient. If you have any questions or concerns regarding treatment for the above conditions, or other urologic issues, please do not hesitate to contact me. The office telephone contact is [phone]. Sincerely, Dr Jamari Diaz MD, [facility] - Urology Compassionate Specialist Care for the Genitourinary System Coding Level of Care Code Est Pt Level 3 (66134) Complex EM visit Add On G2211 Diagnoses BPH w urinary obs/LUTS N40.1; N13.8
== END 2024-11-13 16:49 | disposition home or self-care (01) ==
LOC: HO.HUSH 15:17
PROVIDERS: PCP Internal Medicine; Visit Provider Urology
DX: N40.1 Benign prostatic hyperplasia with lower urinary tract symptoms (principal); N13.8 Other obstructive and reflux uropathy
CPT/HCPCS: 99213

== ENCOUNTER → 2024-11-13 15:17 | Outpatient (BNVA) | payer BC, SELFPAY | PROVIDERS: PCP Internal Medicine; Visit Provider Urology ==

== ENCOUNTER 2025-02-14 10:51 | Outpatient (AMB) | payer BC, SELFPAY ==
--- NOTE | 2025-02-14 10:51 | MHC.OFFVIS ---
Intake Visit Reasons: follow up Intake Note: Patient is present for: follow up Urology Medication:tadalafil Blood Thinner:NONE Toll Line Repairer Required: No Accompanied by: Self / Same As Patient Allergies No Known Allergies Allergy (Verified 02/14/25 10:52) HPI Comments Details: Bishnu is a very pleasant [place] male. 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 Current treatment includes observation. Prostate Symptom Score Mild (0-8), Bother 2. Symptoms include incomplete emptying, weak stream, and are stable. [facility] Medical History Benign prostatic hyperplasia with lower urinary tract symptoms Hyperlipidemia Mild acid reflux Poor urinary stream Surgical History History of surgery Review of Systems Const All systems reviewed & are unremarkable except as noted in HPI and below Reports no additional complaints Resp Reports no additional complaints GI Reports no additional complaints Reports as per HPI Musc Reports no additional complaints Physical Exam Telemedicine evaluation Appropriate responses Regular breathing rate and rhythm HEENT Head: Yes normal to inspection Ears: hearing grossly normal bilaterally Eyes General: appearance normal, both eyes and all related structures Neck Neck: Yes normal visual inspection Chest Chest palpation & inspection: normal inspection of the chest Resp Effort & Inspection: normal respiratory effort and able to speak in complete sentences Telehealth Telehealth Telehealth Platform: [employer] Location of provider rendering services: practice address Location of patient: address on file Patient Identification confirmed using: Name, : Yes Telehealth method: video Patient verbally consented to treatment: Yes Patient verbally consented to billing insurance company: Yes Patient informed of any privacy concerns related to visit: Yes Minutes spent on Phone/Video with Pt.: 15 Assessment & Plan Assessment & Plan (1) BPH w urinary obs/LUTS: Code(s): N40.1 - Benign prostatic hyperplasia with lower urinary tract symptoms; N13.8 - Other obstructive and reflux uropathy Category: Medical (2) Bladder instability: Code(s): N32.89 - Other specified disorders of bladder Category: Medical Plan Twelve month follow-up Medications: Refilled tadalafil [id number] [facility] [id number] Member [id number] 5 mg PO DAILY 90 tabs 1RF bladder stability 90 days N13.8 - Other obstructive and reflux uropathy, N40.1 - Benign prostatic hyperplasia with lower urinary tract symptoms Patient Instructions: This note is constructed using voice recognition software. While every effort has been made to ensure accuracy miter grinder operator errors may have been included. Imaging studies, laboratory and physical exam results were discussed and reviewed in detail. No major barriers to patient understanding were identified. An opportunity to ask questions regarding the treatment plan was provided. All questions were answered. The patient expressed understanding and agreement with the above treatment plan. The patient is aware they should contact our office by phone for worsening of their current condition or the appearance of new urologic symptoms. Compliance is encouraged with any medications and followup testing that is ordered. It is a privilege to participate in the urologic care of your patient. If you have any questions or concerns regarding treatment for the above conditions, or other urologic issues, please do not hesitate to contact me. The office telephone contact is [phone]. Sincerely, Dr Jamari Diaz MD, [facility] - Urology Compassionate Specialist Care for the Genitourinary System Coding Level of Care Code Tele Est Pt Level 3 (75850) Diagnoses BPH w urinary obs/LUTS N40.1; N13.8 Bladder instability N32.89
--- OUTSIDE RECORDS SUMMARY | 2025-02-14 10:54 | XMS_ITS | Clinical Summary ---
Author Organization [facility] [employer] Address [address] [place] [address] Care Team Providers Care Ultra Sound Technician Name Role Phone Unavailable Primary Care Provider [...] Adults 18 yrs or above (or HM Modifier)([facility]) 1976 Hepatitis C Virus Infection in Adolescents and Adults: Screening (or Modifier) ([facility]) 1978 [facility] Screening Reminder: Rosita pena for all adults ([facility]) 1976 Tobacco Smoking Cessation: i n Adults excluding Women: Behavioral and Pharmacotherapy Interventions ([facility]) 1976 DTaP/Tdap/Td Vaccines ([facility]) (1 - Tdap) 1977 Colorectal Cancer Screening 45 -75 Yrs (or HM Modifier ) 09/25/2003 Colorectal Cancer: FLEXIBLE SIGMOIDOSCOPY Screening every 5 yrs 09/25/2003 Colorectal Cancer: Fecal Imm unochemical Test (FIT) Annually [facility] 09/25/2003 Colorectal Cancer: High-sens itivity gFOBT Screening Annually [facility] 09/25/2003 Colorectal Cancer: Stool Col oguard Screening every 3 yrs 09/25/2003 Colorectal Cancer:CT Colonography Screening every 5 yr s 09/25/2003 Pneumococcal Vaccination Scr eening: Patients 50+ yrs of age ([facility]) (1 of 1 - PCV) 2008 Zoster/Shingles Vaccine Seri es Screening: Adults aged 18+ yrs (or HM Modifiers)([facility]) (1 of 2) 2008 COVID-19 Vaccine Screening: Initial Series and Booster Status ([facility]) (2023- season) 2024 Flu Vaccination: Ages 65+: Y early High Dose Recommended (or Modifier)([facility]) 01/24/2025 RSV Vaccines (1 - 1-dose 75+ series) 2033 Medical Devices Not on file
--- OUTSIDE RECORDS SUMMARY | 2025-02-14 10:54 | XMS_ITS | Clinical Summary ---
Author Organization [facility] Address [address] [place] [phone] Phone Care Team Providers Care Photographer Scientific Name Role Phone Virgil Roca MD Primary Care Provider [phone] Social History Tobacco Use Types Packs/Day Years [...] topic Medical Devices Not on file Insurance [facility] PPO EPO [facility] PPO EPO [employer] [employer] E[place] [employer] [place] [employer] PPO EPO Care Teams Photographer Scientific Relationship Specialty Start Date End Date Virgil Roca MD [address] [place] [id number] PCP - General Internal Medicine 11/07/22 Additional Source Comments The information contained in this document represents components of the legal health record. It is not the complete legal health record.[facility]
--- OUTSIDE RECORDS SUMMARY | 2025-02-14 10:54 | XMS_ITS | Clinical Summary ---
Author Organization [facility] [address] [facility] Building Address [address] [place] [phone] Phone Care Team Providers Care Utility Worker Driver Name Role Phone Virgil Roca MD Primary Care Provider [phone] Allergies No known active allergies Medications cholecalciferol [...] 30 each 11 4 05/24/20 25 Active rosuvastatin (CRESTOR) 10 mg tablet TAKE 1 TABLET ONCE DAILY 90 tablet 5 Active dilTIAZem CD (CARDIZEM CD) 120 mg 24 hr capsule TAKE 1 CAPSULE DAILY 90 capsule 5 Active tadalafiL (CIALIS) 5 mg tablet Take 1 tablet (5 mg total) by mouth 1 (one) time each day. Every other day per pt due to side effects (muscle aches) 5 Active Active Problems Problem Noted Date Diagnosed Date Thyroid nodule 09/11/2023 Thrombocytopenia (CMS/HCC V24) 07/23/2021 Thyroid with heterogeneous e chotexture determined by ultrasound 12/15/2020 Chronic low back pain without sciatica 8 Benign non-nodular prostatic hyperplasia without lower urinary tract symptoms 01/18/2017 Hyperlipidemia 01/18/2017 Back pain 07/14/2008 Hordeolum externum 08/15/2005 HTN (hypertension) 08/15/2005 Encounters Date Type Department Care Team Description 01/16/2025 1:00 PM EDT Office Visit Internal Medicine - [address] [phone] Merrill Raphael NP Primary hypertension (Primary Dx); Benign non-nodular prostatic hyperplasia without lower urinary tract symptoms; Thrombocytopenia (CMS/HCC V24); Hyperlipidemia, unspecified hyperlipidemia type; Chronic bilateral low back pain, unspecified whether sciatica present 11/25/2024 3:30 PM EDT Office Visit Walk-In Clinic - [address] [phone] Hany Salguero, FAMILY RESOURCE COORDINATOR Skin lesion (Primary Dx) from Last 3 Months Immunizations Name Administration [...] negative 2014) Daughter 1 Alive born 1990, heal thy, Otilia, 12/25/15 Daughter 2 Alive born 1996, heal thy, L[employer]des at college Father Alive HTN, BPH. Maternal Grandfather Maternal Grandmother Mother (Age 57 ) Manic Dep ressive, accid.OD amitriptyline(FH colon ca & breast CA) Other 1 Other 2 Paternal Grandfather Paternal Grandmother Sister 1 Alive full sister wit h HTN Sister 2 Alive Two 1/2 sisters , healthy Son Alive born 1987, heal thy, [place], , [place] Uncle Alive age 50's stomac h [...] ed Within the last 3 months, ho aga many times did you visit the emergency [...] care for your loved ones. For example, early childhood special educator or elderly care for an older adult? [...] Value Date Recorded Sex Assigned at Male 01/16/2025 6:49 AM EDT Legal Sex Male 7:22 PM EST Gender Identity Male 01/16/2025 6:49 AM EDT Sexual Orientation Not on file Obstetrics History Last Filed Vital Signs Vital Sign Reading Time Taken Comments Blood Pressure 134/66 01/16/2025 1:05 PM EDT Pulse 57 01/16/2025 1:05 PM EDT Temperature 35.8 C (96.4 F) 10/18/2024 8:06 AM EDT Respiratory Rate - - Oxygen Saturation 98% 11/25/2024 3:34 PM EDT Inhaled Oxygen Concentration - - Weight 94.8 kg (208 lb 14.4 oz) 01/16/2025 1:05 PM EDT Height 181.6 cm (5' 11.5 ) 10/18/2024 8:06 AM ED T Body Mass Index 28.73 10/18/2024 8:06 AM EDT Plan of Treatment Upcoming Encounters Date Type Department Care Team (Late st Contact Info) Description 03/06/2025 9:45 AM EDT Consult General Surgery - [place] [address] [facility] [address] [place] [phone] Nicolas Mi MD [address] [facility] [address] [place] [address] Health Maintenance Due Date Last Done Comments Falls Risk Assessment 09/25/2023 Depression Screening 06/26/2024 05/23/2024 COVID-19 Vaccine ( season) 2024 03/02/2024, 03/25/2023, 03/10/2022, Additional history exists Influenza Vaccine (#1) 2025 3, 03/14/2022, 03/10/2022, Additional history exists Social Influencers of Health Screening 05/23/2025 05/23/2024 Hypertension/CHF/CAD Annual BMP Blood Test 01/27/2026 01/27/2025, 05/24/2024, 12/15/2023, Additional history exists DTaP,Tdap,and Td Vaccines (4 - Td or Tdap) 02/20/2028 02/19/2018, 08/31/2007, 07/04/1997 Colorectal Cancer Screening: Colonoscopy 01/14/2030 01/15/2020 Cholesterol Screening (Lipid Panel) 01/27/2030 01/27/2025, 05/24/2024, 08/04/2023 RSV Immunization Adult Patients (1 - 1-dose [...] Procedure Name Priority Date/Time Associated Diagnosis Comments CBC WITH AUTO DIFFERENTIAL Routine 01/27/2025 8:42 AM EDT Thrombocytopenia (CMS/HCC V24) THYROID STIMULATING HORMONE WITH REFLEX TO FREE T4 AND FREE T3 Routine 01/27/2025 8:42 AM EDT Thyroid nodule COMPREHENSIVE METABOLIC PANEL Routine 01/27/2025 8:42 AM EDT Primary hypertension LIPID PANEL WITH REFLEX TO DIRECT LDL Routine 01/27/2025 8:42 AM EDT Hyperlipidemia, unspecified hyperlipidemia type CBC AND DIFFERENTIAL Routine 01/27/2025 8:42 AM EDT Thrombocytopenia (CMS/HCC V24) PROSTATE SPECIFIC ANTIGEN SCREEN Routine 01/27/2025 8:42 AM EDT Benign non-nodular prostatic hyperplasia without lower urinary tract symptoms LIPOPROTEIN A Routine 01/27/2025 8:42 AM EDT Hyperlipidemia, unspecified hyperlipidemia type HM COLONOSCOPY Routine 01/15/2020 HEPATITIS C SCREENING Routine 04/01/2013 from Last 3 Months or Most Recently Relevant to Health Maintenance Results * Prostate specific antigen screen (01/27/2025 8:42 AM EDT) PSA 2.17 0.00 - 4.00 ng/mL LAB CHEMISTRY METHOD 01/27/2025 4:26 PM EDT [facility] Blood Venous blood specimen / Unknown Venipuncture / Unknown 01/27/2025 8:42 AM EDT 01/27/2025 8:42 AM EDT Narrative [facility] - 01/27/2025 4:26 PM EDT The Siemens Advia Centaur Chemiluminescent Immunoassay is used. Results obtained with different assay methods or kits cannot be used interchangeably. Results cannot be interpreted as absolute evidence of the presence or absence of malignant disease. us Merrill Raphael NP LAB BLOOD ORDERABLES Final Res ult [facility] [address] [place] [address], [place] [phone] * Thyroid stimulating hormone with reflex to free t4 and free t3 (01/27/2025 8:42 AM EDT) TSH 1.99 0.40 - 4.00 mcIU/mL LAB CHEMISTRY METHOD 01/27/2025 5:37 PM EDT [facility] Blood Venous blood specimen / Unknown Venipuncture / Unknown 01/27/2025 8:42 AM EDT 01/27/2025 8:42 AM EDT us Pam NEELY LAB BLOOD ORDERABLES Final Result [facility] [address] [place] [address], [place] [phone] * Lipid panel with reflex to direct LDL (01/27/2025 8:42 AM EDT) Cholesterol 148 0 - 200 mg/dL LAB CHEMISTRY METHOD 01/27/2025 3:00 PM EDT [facility] Triglycerides 57 0 - 150 mg/dL LAB CHEMISTRY METHOD 01/27/2025 3:00 PM EDT [facility] HDL 68 >=40 mg/dL LAB CHEMISTRY METHOD 01/27/2025 3:00 PM T [facility] LDL Calculated 69 0 - 100 mg/dL LAB CHEMISTRY METHOD 01/27/2025 3:00 PM T [facility] VLDL Cholesterol Georges 11.4 mg/dL LAB CHEMISTRY METHOD 01/27/2025 3:00 PM T [facility] Non HDL Chol. (LDL+VLDL) 80 <145 mg/dL LAB CHEMISTRY METHOD 01/27/2025 3:00 PM [facility] Chol/HDL Ratio 2.2 0.0 - 4.4 LAB CHEMISTRY METHOD 01/27/2025 3:00 PM [facility] Blood Venous blood specimen / Unknown Venipuncture / Unknown 01/27/2025 8:42 AM EDT 01/27/2025 8:42 AM EDT us Merrill Raphael NP LAB BLOOD ORDERABLES Final Res ult [facility] [address] [place] [address], * (ABNORMAL) CBC auto differential (01/27/2025 8:42 AM EDT) WBC 5.5 4.8 - 10.8 K/mcL LAB HEMETOLOGY METHOD 01/27/2025 1:13 PM EDT [facility] RBC 5.20 4.50 - 5.50 M/mcL LAB HEMETOLOGY METHOD 01/27/2025 1:13 PM EDT [facility] Hemoglobin 15.8 13.5 - 17.5 g/dL LAB HEMETOLOGY METHOD 01/27/2025 1:13 PM EDT [facility] Hematocrit 48.7 42.0 - 54.0 % LAB HEMETOLOGY METHOD 01/27/2025 1:13 PM EDT [facility] MCV 93.5 79.0 - 98.0 FL LAB HEMETOLOGY METHOD 01/27/2025 1:13 PM EDT [facility] MCH 30.3 27.0 - 32.0 pcg LAB HEMETOLOGY METHOD 01/27/2025 1:13 PM EDT [facility] MCHC 32.4 32.0 - 37.0 g/dL LAB HEMETOLOGY METHOD 01/27/2025 1:13 PM EDT [facility] RDW 12.4 11.0 - 15.0 % LAB HEMETOLOGY METHOD 01/27/2025 1:13 PM EDT [facility] Platelets 116(L) 130 - 400 K/mcL LAB HEMETOLOGY METHOD 01/27/2025 1:13 PM [facility] MPV 12.7(H) 7.0 - 11.0 FL LAB HEMETOLOGY METHOD 01/27/2025 1:13 PM [facility] NRBC 0.0 <1.0 % LAB HEMETOLOGY METHOD 01/27/2025 1:13 PM [facility] NRBC Absolute 0.00 <0.10 K/mcL LAB HEMETOLOGY METHOD 01/27/2025 1:13 PM [facility] Neutrophils Relative 53.4 % LAB HEMETOLOGY METHOD 01/27/2025 1:13 PM [facility] Lymphocytes Relative 30.2 % LAB HEMETOLOGY METHOD 01/27/2025 1:13 PM [facility] Monocytes Relative 11.3 % LAB HEMETOLOGY METHOD 01/27/2025 1:13 PM [facility] Eosinophils Relative 4.0 % LAB HEMETOLOGY METHOD 01/27/2025 1:13 PM [facility] Basophils Relative 0.9 % LAB HEMETOLOGY METHOD 01/27/2025 1:13 PM [facility] Immature Granulocytes Relative 0.2 % LAB HEMETOLOGY METHOD 01/27/2025 1:13 PM [facility] Neutrophils Absolute 2.92 1.50 - 7.00 K/mcL LAB HEMETOLOGY METHOD 01/27/2025 1:13 PM [facility] Lymphocytes Absolute 1.65 1.00 - 5.00 K/mcL LAB HEMETOLOGY METHOD 01/27/2025 1:13 PM [facility] Monocytes Absolute 0.62 0.20 - 1.00 K/mcL LAB HEMETOLOGY METHOD 01/27/2025 1:13 PM [facility] Eosinophils Absolute 0.22 0.00 - 0.50 K/mcL LAB HEMETOLOGY METHOD 01/27/2025 1:13 PM EDT [facility] Basophils Absolute 0.05 0.00 - 0.20 K/[facility] LAB HEMETOLOGY METHOD 01/27/2025 1:13 PM EDT [facility] Immature Granulocytes Absolute 0.01 0.00 - 0.03 K/mcL LAB HEMETOLOGY METHOD 01/27/2025 1:13 PM EDT [facility] Blood Venous blood specimen / Unknown Venipuncture / Unknown 01/27/2025 8:42 AM EDT 01/27/2025 8:42 AM EDT Merrill Raphael FAMILY RESOURCE COORDINATOR LAB BLOOD ORDERABLES Final Res ult [facility] [address] [place] [address], * (ABNORMAL) Lipoprotein A (01/27/2025 8:42 AM EDT) [facility] Lipoprotein a 124(H) 0 - 75 nmol/l 01/29/2025 10:29 AM EDT [facility] Comment: >=125 nmol/L is an accepted cutoff for risk enhancement in [place] [employer]/[place] [employer] Association (ACC/AHA) guidelines. >=100 nmol/L is an accepted cutoff for risk enhamncement in the [place] Cardiovascular Society (CCS) guidelines. <75 nmol/L is considered normal, 50-125 nmol/L intermediate, and >125 nmol/L abnormal in the Atherosclerotic Society (EAS) consensus statement. >100 nmol/L is accepted as a risk-enhancing cutoff in the National Lipid Association (NLA) scientific statement. Test performed at [facility], [address], [place] [address] Brianda Little MD, PhD - Medical Investigator Blood Venous blood specimen / Unknown Venipuncture / Unknown 01/27/2025 8:42 AM EDT 01/27/2025 8:42 AM EDT us Merrill Raphael NP LAB BLOOD ORDERABLES Final Res [place] [address] [place] [address] * Comprehensive metabolic panel (01/27/2025 8:42 AM EDT) Sodium 142 133 - 145 mmol/L LAB CHEMISTRY METHOD 01/27/2025 3:00 PM [facility] Potassium 4.0 3.5 - 5.5 mmol/L LAB CHEMISTRY METHOD 01/27/2025 3:00 PM [facility] Chloride 105 96 - 110 mmol/L LAB CHEMISTRY METHOD 01/27/2025 3:00 PM [facility] CO2 30 21 - 32 mmol/L LAB CHEMISTRY METHOD 01/27/2025 3:00 PM [facility] Anion Gap 7 3 - 11 LAB CHEMISTRY METHOD 01/27/2025 3:00 PM [facility] Glucose 82 70 - 100 mg/dL LAB CHEMISTRY METHOD 01/27/2025 3:00 PM [facility] BUN 24 5 - 25 mg/dL LAB CHEMISTRY METHOD 01/27/2025 3:00 PM [facility] Creatinine 1.16 0.70 - 1.30 mg/dL LAB CHEMISTRY METHOD 01/27/2025 3:00 PM [facility] eGFR 69 >=60 mL/min/1. 73m2 LAB CHEMISTRY METHOD 01/27/2025 3:00 PM [facility] Comment:Calculation based on the Chronic Kidney Disease Epidemiology Collaboration (CKD-EPI) equation refit without adjustment for race. BUN/Creatinine Ratio 20.7 LAB CHEMISTRY METHOD 01/27/2025 3:00 PM [facility] Calcium 9.3 8.5 - 10.5 mg/dL LAB CHEMISTRY METHOD 01/27/2025 3:00 PM [facility] AST (SGOT) 26 10 - 42 unit/L LAB CHEMISTRY METHOD 01/27/2025 3:00 PM EDT [facility] ALT (SGPT) 37 10 - 60 unit/L LAB CHEMISTRY METHOD 01/27/2025 3:00 PM EDT [facility] Alkaline Phosphatase 93 42 - 121 unit/L LAB CHEMISTRY METHOD 01/27/2025 3:00 PM EDT [facility] Total Protein 6.4 6.0 - 8.0 g/dL LAB CHEMISTRY METHOD 01/27/2025 3:00 PM EDT [facility] Albumin 3.6 3.2 - 5.0 g/dL LAB CHEMISTRY METHOD 01/27/2025 3:00 PM EDT [facility] Total Bilirubin 0.8 0.0 - 1.4 mg/dL LAB CHEMISTRY METHOD 01/27/2025 3:00 PM EDT [facility] Blood Venous blood specimen / Unknown Venipuncture / Unknown 01/27/2025 8:42 AM EDT 01/27/2025 8:42 AM EDT Merrill Raphael FAMILY RESOURCE COORDINATOR LAB BLOOD ORDERABLES Final Res ult [facility] [address] [place] [address], * Colonoscopy (01/15/2020) [facility] Colonoscopy No interpreta tion,abstr acted Anatomical Region Laterality Modality Other Historical Provider HEALTH MAINTENANCE Final Result * Hepatitis C Screening (04/01/2013) [facility] Hepatitis C Screening Abstracted Historical Provider HEALTH MAINTENANCE Final Result from Last 3 Months or Most Recently Relevant to Health Maintenance Insurance [facility] Care Teams Utility Worker Driver Relationship Specialty Start Date End Date Virgil Roca MD [address] [place] [address] PCP - General Internal Medicine 04/21/20
== END 2025-02-14 13:15 | disposition home or self-care (01) ==
LOC: HO.HUSH 10:51
PROVIDERS: PCP Internal Medicine; Visit Provider Urology
DX: N40.1 Benign prostatic hyperplasia with lower urinary tract symptoms (principal); N13.8 Other obstructive and reflux uropathy; N32.89 Other specified disorders of bladder
CPT/HCPCS: 99213